=== PATIENT | male | born 1965 | race African-American/Black ===

== ENCOUNTER 2016-08-10 20:42 | Emergency (ER) | payer SELFPAY ==
[2016-08-10] MEDS ORDERED: BOOSTRIX IM ONE (20:56)
[2016-08-10] MEDS ORDERED: MORPHINE IM ONE (20:56)
[2016-08-10] MEDS ORDERED: ZOFRAN PO PRN (20:56)
[2016-08-10] MEDS ORDERED: ZOFRAN ONE (21:09)
[2016-08-10] MEDS ORDERED: ZOFRAN IV ONE (21:19)
[2016-08-10] MEDS ORDERED: MORPHINE IV ONE (21:19)
[2016-08-10] MEDS ORDERED: ceFAZolin 2 GM in NACL 0.9% 100 ML IV ONE (22:01)
[2016-08-10] MEDS ORDERED: XYLOCAINE 1% 20 mL ONE (22:09)
[2016-08-10] MEDS ORDERED: XYLOCAINE 2% INFILTRATI ONE (22:09)
--- NOTE | 2016-08-10 22:09 | Emergency Department Report ---
- General Chief Complaint: Wound/Laceration Stated Complaint: LACERATION TO RIGHT HAND Time Seen by Provider: 08/10/16 20:54 Source: patient, family Mode of arrival: Ambulatory Limitations: No Limitations - History of Present Illness Initial Comments: 51-year-old male with no past medical history presenting to the emergency department with left hand injury. Patient was working with his lawnmower when he got his hand caught up under the lawnmower and then noticed that his third and fourth digit had severe lacerations. Patient denies trauma elsewhere. Patient states his only pain is at the tip of his fingers where the lawnmower has caused injury. Patient denies: Head trauma, neck pain, chest pain, abdominal pain. Patient is left-handed -: Sudden Location: other (hands) Extremity Location: Left: Hand Place: home, outdoors Patient Tetanus UTD: No Context: accidental Associated Symptoms: pain, unable to move injured part - Related Data Previous Rx's Medication Instructions Recorded Last Taken Type Cephalexin [Keflex] 500 mg PO Q8HR #40 cap 08/10/16 Unknown Rx Ibuprofen [Motrin] 800 mg PO Q8HR PRN #20 tablet 08/10/16 Unknown Rx oxyCODONE /ACETAMINOPHEN [Percocet 1 tab PO Q6HR PRN #20 tablet 08/10/16 Unknown Rx 5/325] Allergies Allergy/AdvReac Type Severity Reaction Status Date / Time No Known Allergies Allergy Unverified 08/10/16 21:09 ED Review of Systems ROS: Stated complaint: LACERATION TO RIGHT HAND Other details as noted in HPI Constitutional: denies: chills, fever Eyes: denies: eye pain, eye discharge, vision change ENT: denies: ear pain, throat pain Respiratory: denies: cough, shortness of breath, wheezing Cardiovascular: denies: chest pain, palpitations Endocrine: no symptoms reported Gastrointestinal: denies: abdominal pain, nausea, diarrhea Genitourinary: denies: urgency, dysuria Musculoskeletal: denies: back pain, joint swelling, arthralgia Skin: as per HPI Neurological: denies: headache, weakness, paresthesias Psychiatric: denies: anxiety, depression Hematological/Lymphatic: denies: easy bleeding, easy bruising ED Past Medical Hx - Past Medical History Previous Medical History?: No - Surgical History Past Surgical History?: No - Social History Smoking Status: Never Smoker Substance Use Type: None - Medications Home Medications: Home Medications Medication Instructions Recorded Confirmed Last Taken Type Cephalexin [Keflex] 500 mg PO Q8HR #40 cap 08/10/16 Unknown Rx Ibuprofen [Motrin] 800 mg PO Q8HR PRN #20 tablet 08/10/16 Unknown Rx oxyCODONE /ACETAMINOPHEN [Percocet 1 tab PO Q6HR PRN #20 tablet 08/10/16 Unknown Rx 5/325] ED Physical Exam - General Limitations: No Limitations General appearance: alert, in no apparent distress - Head Head exam: Present: atraumatic, normocephalic - Eye Eye exam: Present: normal appearance - ENT ENT exam: Present: mucous membranes moist - Neck Neck exam: Present: normal inspection - Respiratory Respiratory exam: Present: normal lung sounds bilaterally. Absent: respiratory distress - Cardiovascular Cardiovascular Exam: Present: regular rate, normal rhythm. Absent: systolic murmur, diastolic murmur, rubs, gallop - GI/Abdominal GI/Abdominal exam: Present: soft, normal bowel sounds - Rectal Rectal exam: Present: deferred - Extremities Exam Extremities exam: Present: other - Back Exam Back exam: Present: normal inspection - Neurological Exam Neurological exam: Present: alert, oriented X3 - Psychiatric Psychiatric exam: Present: normal affect, normal mood - Skin Skin exam: Present: warm, dry, intact, other (digits of 3 and 4th fingers have macerated tips. 3rd finger has tissue that cannot be approximated (no bone is showing), 4th digits has nail bed that appears to be macerated and skin is severly injured and cannot approximate ). Absent: rash ED Course Vital Signs 08/10/16 08/10/16 08/10/16 20:45 21:09 21:30 Temperature 986 F H Pulse Rate 93 H 89 88 Respiratory 20 21 14 Rate Blood Pressure 153/103 151/111 O2 Sat by Pulse 100 100 100 Oximetry 08/10/16 08/10/16 08/10/16 22:00 22:30 23:00 Temperature Pulse Rate 85 87 78 Respiratory 15 20 18 Rate Blood Pressure 150/100 159/104 141/96 O2 Sat by Pulse 99 99 100 Oximetry 08/10/16 08/11/16 23:30 00:00 Temperature Pulse Rate 78 78 Respiratory 21 25 H Rate Blood Pressure 135/94 139/96 O2 Sat by Pulse Oximetry - Reevaluation(s) Reevaluation #1: 08/11/16 00:00 Wounds irrigated with copious normal saline Reevaluation #2: 08/10/16 23:12 I have spoken to Dr. Goldsmith, orthopedics, who has seen images of patient's wound and recommended patient have wound dressed with wet-to-dry and Xeroform and splinted and have patient follow-up in his clinic tomorrow at 9 AM 08/11/16 00:00 ED Medical Decision Making - Radiology Data Radiology results: image reviewed interpreted by me: Patient has fracture third distal finger - Medical Decision Making 51-year-old male with no past medical history presented to Emergency department with laceration of the third and fourth digits of the left hand. Patient had wound irrigated and dressed with instructions to follow-up with orthopedic clinic within 24 hours. I was unable to repair his wounds due to the extensive damage done to the tip of his fingers and the lack as his tissues ability to approximate. Patient relative verbalized understanding. Patient has no questions. Stable, he will DC home. He verbalized understanding of the seriousness of his injuries and the likelihood of infection if he doesn't follow-up with health care referrals. Critical Care Time: No Critical care attestation.: If time is entered above; I have spent that time in minutes in the direct care of this critically ill patient, excluding procedure time. ED Disposition Clinical Impression: Laceration of finger nail bed, Fracture, finger, distal phalanx Disposition: DC-01 TO HOME OR SELFCARE Is pt being admited?: No Does the pt Need Aspirin: No Condition: Stable Instructions: Laceration (ED), Soft Tissue Foreign Body (ED), Finger Laceration (ED) Additional Instructions: Please keep hand and wound dry and follow-up with orthopedic Dr. Goldsmith tomorrow 08/11/2016 at 9 AM Prescriptions: Cephalexin [Keflex] 500 mg PO Q8HR #40 cap Ibuprofen [Motrin] 800 mg PO Q8HR PRN #20 tablet PRN Reason: Pain , Severe (7-10) oxyCODONE /ACETAMINOPHEN [Percocet 5/325] 1 tab PO Q6HR PRN #20 tablet PRN Reason: Pain Referrals: ALONA GOLDSMITH MD [Staff Physician] - 08/11/16 9:00 am Forms: Work/School Release Form(ED)
[2016-08-10] MEDS ORDERED: NACL 0.9% 1,000 ML IR ONE (22:23)
[2016-08-10] MEDS ORDERED: NACL 0.9% 1000 ML 1,000 ML ONE (22:24)
[2016-08-11 01:57] VITALS: BP 139/96
--- NOTE | 2016-08-11 09:27 | XRay Report ---
LEFT HAND RADIOGRAPHS INDICATION: Fingers cut by stephanie wade. COMPARISON: None similar at this institution. FINDINGS: AP and lateral views of the left hand demonstrate acute comminuted fractures involving distal aspect of third and fourth distal phalanges/jose. Overlying soft tissue injury/amputation also noted, fourth digit more than the third. Overlying bandage artifact noted. No joint involvement. Normal remainder exam. CONCLUSION: Posttraumatic injury/soft tissue amputation and acute comminuted fractures of left third and fourth distal phalangeal tips, as detailed above. Please correlate. Thank you for the opportunity to participate in this patient's care.
== END 2016-08-11 00:30 | disposition home or self-care (01) ==
LOC: ED 20:42
DX: S61.215A Laceration without foreign body of left ring finger without damage to nail, initial encounter (principal); S62.633A Displaced fracture of distal phalanx of left middle finger, initial encounter for closed fracture; W31.9XXA Contact with unspecified machinery, initial encounter; Y93.9 Activity, unspecified; Y92.9 Unspecified place or not applicable; Y99.9 Unspecified external cause status
CPT/HCPCS: 29125; 73130; 90471; 90715; 96365; 96375; 99283; J0690; J2270; J2405; J7030